=== PATIENT | male | born 1960 | race Caucasian/White ===

== ENCOUNTER → 2022-11-19 12:22 | Outpatient (CLI) | payer BC, SELFPAY ==
--- NOTE | 2022-11-19 12:28 | XR_ITS ---
FINAL REPORT CLINICAL HISTORY: achilles pain weight bearing FINDINGS: RIGHT FOOT Three views of the right foot demonstrate no acute fracture or dislocation. There are mild degenerative changes. Calcification is seen in the region of the distal Achilles tendon. There is a plantar calcaneal spur. IMPRESSION: Degenerative changes as above without acute bony abnormality. Reviewed, Interpreted and Dictated by Guero Saavedra III, MD Transcribed by Jocelyn Maria Authenticated and [facility]
--- NOTE | 2022-11-19 12:28 | XR_ITS ---
FINAL REPORT CLINICAL HISTORY: achilles pain weight bearing FINDINGS: LEFT FOOT Three views of the left foot demonstrate no acute fracture or dislocation. There are mild degenerative changes. Calcification is seen in the region of the distal Achilles tendon. There is a plantar calcaneal spur. IMPRESSION: Degenerative changes as above without acute bony abnormality. Reviewed, Interpreted and Dictated by Guero Saavedra III, MD Transcribed by Jocelyn Maria Authenticated and [facility]
== END ==
PROVIDERS: PCP Nurse Practitioner Family; Visit Provider Podiatrist
DX: M76.61 Achilles tendinitis, right leg (principal)
CPT/HCPCS: 73630

== ENCOUNTER → 2022-12-17 09:47 | Outpatient (CLI) | payer BC, SELFPAY ==
--- NOTE | 2022-12-17 09:48 | MR_ITS ---
FINAL REPORT CLINICAL HISTORY: achilles spur. posterior ankle pain. symptoms xyears. FINDINGS: Multiplanar MR imaging of the right ankle was performed without contrast. There is bone marrow edema in the superior calcaneal tuberosity. No fracture is identified. There are mild degenerative changes. A small osteochondral lesion is seen at the lateral talar dome measuring 3 mm in transverse dimension. There is a tear of the anterior talofibular ligament and probable partial tear of the calcaneofibular ligament. There is distal Achilles tendinitis, peritendinitis and small intrasubstance tears. A chronic calcification is seen in the distal Achilles tendon. Fluid is seen at the retrocalcaneal bursa consistent with bursitis. The posterior plantar aponeurosis is intact. No significant joint effusion is seen. The musculature is intact. There is no evidence of soft tissue mass or cyst. IMPRESSION: Tear of the anterior talofibular ligament and probable partial tear of the calcaneofibular ligament. Distal Achilles tendinitis, peritonitis and small intrasubstance tears. Retrocalcaneal bursitis. 3 mm osteochondral lesion at the lateral talar dome and bone marrow edema in the superior calcaneal tuberosity. Reviewed, Interpreted and Dictated by Guero Saavedra III, MD Transcribed by Jocelyn Maria Authenticated and [facility]
--- NOTE | 2022-12-17 12:01 | XR_ITS ---
FINAL REPORT CLINICAL HISTORY: Chest and epigastric pain COMPARISON: 10/30/2022 FINDINGS: 2 views of the chest were obtained . The heart is normal in size. The mediastinum is within normal limits. The lungs are clear. There is no pneumothorax. Osseous structures are unremarkable. IMPRESSION: No acute cardiopulmonary process. Reviewed, Interpreted and Dictated by Guero Saavedra III, MD Transcribed by Jocelyn Maria Authenticated and [facility]
--- NOTE | 2022-12-17 14:25 | ECG_ITS ---
APPROVED REPORT Exam: Resting ECG HR:87 bpm ECG Measurements Heart Rate 87 AXES ME 152 P 23 QRSd 99 QRS 6 QT 364 T 27 QTc 408 Conclusion SINUS RHYTHM NORMAL ECG UNCONFIRMED REPORT Electronically signed by : Pelon Padron MD 12/17/2022 21:13:10
[2022-12-17 14:59] LABS: Basophils % 0.9 % (0.1-2.0); Eosinophils # 0.2 K/mm3 (0.0-0.4); Eosinophils % 5.2 % (0.1-12.0); Hematocrit 45.8 % (42.0-52.0); Hemoglobin 15.4 g/dL (14.1-18.0); Lymphocytes # 1.1 K/mm3 (0.7-4.5); Lymphocytes % 26.2 % (10-50); Mean Corpuscular HGB Conc 33.7 g/dL (31.8-35.4); Mean Corpuscular Hemoglobin 30.5 pg (27.0-31.2); Mean Corpuscular Volume 90.4 fl (80-94); Monocytes # 0.3 K/mm3 (0.1-1.0); Monocytes % 7.7 % (1.7-9.3); Neutrophils # 2.5 K/mm3 (1.8-7.8); Neutrophils % 59.8 % (37.0-80.0); Platelet Count 199 K/mm3 (142-424); Red Blood Count 5.06 M/mm3 (4.60-6.20); Red Cell Distribution Width 14.4 % (11.5-17.5); White Blood Count 4.2 K/mm3 (4.8-10.8)
[2022-12-17 16:09] LABS: Alanine Aminotransferase 59 U/L (12-78); Albumin Level 4.4 g/dl (3.5-5.0); Albumin/Globulin Ratio 1.6 (1.1-1.8); Alkaline Phosphatase 77 U/L (38-126); Anion Gap 17.7 mEq/L (5-15); Aspartate Amino Transferase 55 U/L (17-59); Bilirubin,Total 1.7 mg/dl (0.2-1.3); Blood Urea Nitrogen 24 mg/dl (9-20); Calcium 8.9 mg/dl (8.4-10.2); Carbon Dioxide 29 mmol/L (22.0-30.0); Chloride 95 mmol/L (98-107); Estimated Glomerular Filt Rate 86 ml/min (>60); GFR (African American) 104 ML/MIN (>60); Globulin 2.7 g/dL (1.3-3.2); Glucose 144 mg/dl (74-100); Potassium 3.7 mmoL/L (3.5-5.1); Sodium 138 mmol/L (136-145); Total Protein,Serum 7.1 g/dl (6.3-8.2)
[2022-12-17 16:26] LABS: 25-OH Vitamin D, Total 32.6 ng/mL (30-100)
== END ==
PROVIDERS: PCP Nurse Practitioner Family; Visit Provider Podiatrist
DX: R09.89 Other specified symptoms and signs involving the circulatory and respiratory systems (principal); M19.071 Primary osteoarthritis, right ankle and foot; M19.072 Primary osteoarthritis, left ankle and foot; G62.9 Polyneuropathy, unspecified; M76.61 Achilles tendinitis, right leg; E66.9 Obesity, unspecified; Z68.32 Body mass index [BMI] 32.0-32.9, adult
CPT/HCPCS: 36415; 71046; 73721; 80053; 82306; 83036; 85025; 93005

== ENCOUNTER 2023-01-30 09:32 | Day surgery (SDC) | payer BC, SELFPAY ==
[2023-01-30] VITALS (9 sets, daily range): BP systolic 127–177; BP diastolic 69–91; PULSE 72–87; RESP 12–18; TEMP 36.1–36.6; O2SAT 93–99; BMI 32.5
--- NOTE | 2023-01-30 09:28 | SUR.PREOP ---
TC to Dr. Vanessa to see if MD wants labs, CXR, or EKG redone since over 30 days old. said is okay to not redo any labs, CXR, or EKG.
[2023-01-30 10:06] LABS: POC Glucose,Bedside 124 (70-110)
--- NOTE | 2023-01-30 10:59 | XR_ITS ---
FINAL REPORT CLINICAL HISTORY: Post op achilles, retrocalc exostectomy COMPARISON: 11/19/2022 FINDINGS: RIGHT ANKLE SERIES Three views of the right ankle were obtained. There is no acute fracture or dislocation. There are mild degenerative changes. There has been interval removal of the calcification of the distal Achilles tendon. There is no soft tissue abnormality. There is a splint present. IMPRESSION: Mild degenerative changes. Interval removal of the calcification of the distal Achilles tendon. Reviewed, Interpreted and Dictated by Guero Saavedra III, MD Transcribed by Milad Orozco Authenticated and [facility]
--- NOTE | 2023-01-30 12:00 | P.PN_ITS ---
[facility] Disclaimer: The information contained in this section may have been updated after the patient was seen, as this information can be updated by other users. Medical History Achilles tendon pain Surgical History History of foot surgery History of hand surgery History of knee surgery History of shoulder surgery Hx of eye surgery Family History Other Cancer Diabetes Hypertension Social History (Updated 01/30/23 @ 09:44 by Jennifer Lewis RN) Smoking Status: Never smoker alcohol intake: never substance use type: denies use current occupational status: employed Travel in the last 8 weeks: None household members: spouse housing: house marital status: [facility] Anesthesia Checklist Patient Identification Patient Identification: Verbal (Name & ) Structural Data Admitted From: Home Planned Operative Procedure/s: r ankle stabilization Consent for Planned Operative Procedure(s) Verified: Yes NPO Status Verified Time NPO: 00:00 Additional verifications Anesthesia Reactions: No Hx Blood Transfusions: No Blood Transfusion Reaction: No Airway Assessment C-Spine Mobility Assessed: Yes TMJ Mobility Assessed: Yes Dentition: Good Dentition Neurological Assessment Level of Consciousness: Awake, Alert and Appropriate Anesthesia Plan Anesthesia Risk discussed: Yes Anesthesia Plan: Verified ASA Class: III Anesthesia Type: General w/block Preoperative Comments Pre-Operative Comments: pop block exp to pt incl risks, pt agrees to proceed
--- NOTE | 2023-01-30 13:50 | P.PNANES_ITS ---
[facility] Anesthesia Record Part I Anesthesia Record I Intake, IV Amount: 1,800 Estimated blood loss (mL): 0 Urine output (mL): 0 Blood Pressure: 150/91 SaO2: 93 Pulse Rate: 84 Respiratory Rate: 12 Temperature: 97.5 F Patient is:: Awake and Stable Stable to PACU at:: 13:50
--- NOTE | 2023-01-30 14:16 | EXP.OP.NOTE ---
Date of procedure: 01/30/23 Pre-op Diagnosis:: Right ankle instability Right Achilles tendon tear Right Achilles tendinitis Right retrocalcaneal exostosis Post-op Diagnosis:: Same + fibula loose body Procedure performed:: Right achilles repair with graft Modified Brostrum w/ secondary ATFL/CFL repair Right fibula partial excision bone Retrocalcaneal exostectomy Right tenoynovectomy peroneal tendon Surgeon:: Arely Vanessa DPM CURING BIN OPERATOR:: Arpit Rodriguez Anesthesia: GETA and regional (right pop nerve block) Estimated blood loss (mL): 20 Clinical Note:: Patient is a 62-year-old newly diagnosed diabetic male who was referred for surgical evaluation from Dr. Carcamo.? ABIs reviewed and were within normal limits, adequate healing potential. The patient has tried immobilization, modification of shoe gear, strapping, inserts, ice, elevation, and NSAIDs. He has also tried ankle bracing, K tape and home physical therapy. After a long discussion with the patient in regards to the conservative versus surgical treatment for the tendon tear/deformity, the patient has elected to proceed with surgery because they have failed conservative treatment and continue to have pain and worsening symptoms affecting daily activities.? Surgery discussed including retro-calcaneal exostectomy with Achilles debridement and repair, ankle stabilization and possible posterior tibial and peroneal tendon debridement/repair.? The patient has been instructed on the planned procedure, all risk versus benefits of the procedure discussed.? These include but are not limited to: bleeding, infection, nerve and blood vessel damage, worsening neuropathy, need for further surgery, delay in healing of soft tissue or bone, tendon re-rupture, failure of bones to heal, non-union, mal-union, failure of the implant, prolonged pain and recovery, prolonged/permanent pain or swelling, CRPS/RSD, DVT/PE and anesthetic complications. No guarantees were given. All questions fully answered.? Written consent obtained.? Patient was fitted/dispensed crutches in office today. Operative findings:: Right ankle instability noted with a positive anterior ankle drawer preoperatively. ATFL and CFL both torn and attenuated. Synovitis noted in the lateral ankle. Fibula loose body noted from the lateral malleolus, removed. Peroneal tenosynovitis appreciated with no tara tear. Retrocalcaneal exostosis noted with hypertrophy of the Achilles tendon distally at the insertion on the calcaneus. About 2 cm proximal to the insertion, Achilles tendon had a partial tear noted. Post modified Brostr?m, negative anterior drawer appreciated. Post achilles repair adequate tension and reduction of equinus deformity appreciated. Operative note:: On this date and time patient was deemed an appropriate surgical candidate. Anesthesia performed a pre-op regional popliteal nerve block. With informed consent signed, the patient was taken to the operating theater. The patient was positioned supine. General anesthesia was induced. Tourniquet was applied to the thigh at 250 mmHg. Patient positioned prone and the right lower extremity was prepped and draped in normal sterile fashion. IV clinda infused. Right fibula partial excision bone: Attention was directed to the lateral ankle where a J type incision was made under the distal fibula. Full-thickness dissection. ATFL and CFL were noted to both be torn and attenuated. There is a loose body in the lateral ankle which was removed in total. Modified Brostrum w/ secondary ATFL/CFL repair: Synovitis was sharply debrided with 15 blade and forceps. Given the attenuated nonviable ligament tissue, decision made to proceed with internal brace. In standard technique in accordance manufacture guidelines, 3.4 mm drill used in the neck of the talus. Internal brace inserted into the talus. Foot was placed in a dorsiflexed everted position and anchor was then inserted in standard technique into the distal fibula. There is im
[2023-01-30 14:23] LABS: POC Glucose,Bedside 168 (70-110)
--- NOTE | 2023-01-30 15:25 | SUR.OPER ---
1154- called to [facility] and spoke with OSVALDO Alba asking that she update the patient's family of the start of surgery per 's request. 1222- called to [facility] and spoke with OSVALDO Alba asking that she update the patient's family that we are beginning to close per 's request.
--- NOTE | 2023-02-04 08:17 | P.PNANES_ITS ---
[facility] Anesthesia Record Part II Anesthesia Record Part II Discharge Time: 14:20 Destination: Surgical Day Care (OP Surgery) PACU nurse assessment reviewed?: Yes Patient Condition:: Good Anesthesia Complications:: None Swallowing reflex intact?: Yes Cyanosis?: No Blood Pressure: 142/87 Pulse Rate: 72 Temperature: 97.2 F Mental Status: Alert & Oriented Pain level:: 0 Nausea and/or vomitting:: None Intake, IV Amount: 0
[2023-02-04 08:19] VITALS: BP 142/87; PULSE 72; TEMP 36.2
== END 2023-01-30 15:01 | disposition home or self-care (01) ==
PROVIDERS: PCP Nurse Practitioner Family; Visit Provider Podiatrist
PROC: (CPT 27652; principal; 2023-01-30 11:00)
DX: M25.371 Other instability, right ankle (principal); M76.61 Achilles tendinitis, right leg; D16.31 Benign neoplasm of short bones of right lower limb; M25.571 Pain in right ankle and joints of right foot; M92.61 Juvenile osteochondrosis of tarsus, right ankle; M67.88 Other specified disorders of synovium and tendon, other site; M19.071 Primary osteoarthritis, right ankle and foot; E11.9 Type 2 diabetes mellitus without complications; I10 Essential (primary) hypertension; Z79.899 Other long term (current) drug therapy
CPT/HCPCS: 27652; 29891; 29897; 29895; 27659; 73610; 82962; 96374; C1713; C1762; J0330; J2405; J2710

== ENCOUNTER 2023-02-27 19:05 | Observation (INO) | payer BC, SELFPAY ==
[2023-02-27 19:07] VITALS: BP 169/90; PULSE 83; RESP 18; TEMP 36.6; O2SAT 98; BMI 31.6
[2023-02-27 19:30] VITALS: BP 155/87; PULSE 81; O2SAT 96
--- NOTE | 2023-02-27 19:46 | XR_ITS ---
PROCEDURE INFORMATION: Exam: XR Right Foot Exam date and time: 02/27/2023 7:54 PM Age: 62 years old Clinical indication: Injury or trauma; Fall; Blunt trauma; Foot; Right; Prior surgery; Surgery date: <1 month; Surgery type: Achilles tendon repair x4 weeks; Additional info: Fall, right surgical site opened TECHNIQUE: Imaging protocol: Radiologic exam of the right foot. Views: 1 or 2 views. COMPARISON: CR XR FOOT WT BEARING RT 3V 11/19/2022 12:29 PM FINDINGS: Bones/joints: Interval surgery with resection of the large Achilles tendon insertion ossification. Thickened appearance of the Achilles tendon. Tiny bony or calcific densities noted within the distal Achilles tendon just above the calcaneus may be residual of the prior surgery. Interval development of soft tissue air just anterior to the Achilles tendon. No fracture or dislocation evident. Soft tissues: See Bones/joints finding. IMPRESSION: 1. Interval surgery with resection of the posterior calcaneal ossification. Thickened appearance of the Achilles tendon that may be related to the interval surgery but can not exclude re-injury given history of trauma. 2. Small amounts of air anterior to the Achilles tendon presumably related to the surgical site dehiscence although infection not totally excluded.
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
--- NOTE | 2023-02-27 20:02 | XR_ITS ---
PROCEDURE INFORMATION: Exam: XR Right Ankle Exam date and time: 02/27/2023 7:54 PM Age: 62 years old Clinical indication: Pain; Ankle; Right; Prior surgery; Surgery date: <1 month; Surgery type: Achilles tendon repair x4 weeks; Additional info: Pain after surgical site dehiscence TECHNIQUE: Imaging protocol: Radiologic exam of the right ankle. Views: 1 or 2 views. COMPARISON: CR XR ANKLE RT MIN 3V 01/30/2023 2:11 PM FINDINGS: Bones/joints: Thickened appearance of the Achilles tendon compatible with history of recent surgery noted. Soft tissue air is noted within the pre Achilles space just anterior to the Achilles tendon. Tiny soft tissue calcific densities also noted just anterior to the Achilles tendon presumably residual of prior injury or surgery. Soft tissues: See Bones/joints finding. IMPRESSION: 1. Thickened Achilles tendon compatible with prior surgery or injury. 2. Small amounts of soft tissue air just anterior to the Achilles tendon which may be related to the reported history of surgical site dehiscence but I can not exclude developing soft tissue infection or possible abscess.
[2023-02-27 20:22] LABS: Basophils % 0.8 % (0.1-2.0); Eosinophils # 0.3 K/mm3 (0.0-0.4); Eosinophils % 6.2 % (0.1-12.0); Hematocrit 45.2 % (42.0-52.0); Lymphocytes % 21.9 % (10-50); Mean Corpuscular HGB Conc 33.2 g/dL (31.8-35.4); Mean Corpuscular Hemoglobin 30.2 pg (27.0-31.2); Mean Corpuscular Volume 91.1 fl (80-94); Mean Platelet Volume 7.5 fl (7.4-10.4); Monocytes # 0.5 K/mm3 (0.1-1.0); Neutrophils # 2.9 K/mm3 (1.8-7.8); Platelet Count 203 K/mm3 (142-424); Red Blood Count 4.96 M/mm3 (4.60-6.20); Red Cell Distribution Width 14.2 % (11.5-17.5); White Blood Count 4.7 K/mm3 (4.8-10.8)
[2023-02-27 20:23] LABS: Chloride 101 mmol/L (98-107); Potassium 3.7 mmoL/L (3.5-5.1); Sodium 140 mmol/L (136-145)
[2023-02-27 20:26] LABS: Anion Gap 10.7 mEq/L (5-15); Blood Urea Nitrogen 22 mg/dl (9-20); Calcium 9.5 mg/dl (8.4-10.2); Carbon Dioxide 32 mmol/L (22.0-30.0); Creatinine Clearance Estimated 93 mL/min (50-200); Estimated Glomerular Filt Rate 56 ml/min (>60); GFR (African American) 68 ML/MIN (>60); Glucose 120 mg/dl (74-100)
--- NOTE | 2023-02-27 20:28 | PC.NURSE ---
Pt is still complaining of pain at this time despite pain meds. aware.
[2023-02-27 20:31] LABS: C-Reactive Protein 2.2 mg/L (0-4)
--- NOTE | 2023-02-27 20:43 | PC.NURSE ---
House aware of Admit
--- NOTE | 2023-02-27 20:49 | PC.NURSE ---
PATIENT ADMITTED TO 214 OBSERVATION WITH DX OF PAIN CONTROL TO SERVICE OF HOSPITALIST.
[2023-02-27 20:55] VITALS: BP 156/88; PULSE 75; O2SAT 98
[2023-02-27 20:57] VITALS: BP 151/74; PULSE 72; RESP 16; TEMP 36.6; O2SAT 98
--- NOTE | 2023-02-27 20:58 | PC.NURSE ---
pt is going to [facility] via stretcher, call light at bs
--- NOTE | 2023-02-27 20:58 | PC.NURSE ---
pt leaving dept via stretcher with Chris Morgan RN
[2023-02-27 21:00] VITALS: BP 151/85; PULSE 73; RESP 18; TEMP 36.8; O2SAT 98; BMI 32.7
[2023-02-27 21:00] LABS: Erythrocyte Sedimentation Rate 15 mm/hr (0-20)
--- NOTE | 2023-02-27 21:04 | PC.NURSE ---
Pt arrived to floor via stretcher @ 2100
[2023-02-27 21:15] LABS: Hemoglobin A1C 5.7 % (4.0-6.0)
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
[2023-02-27 21:48] VITALS: RESP 19
[2023-02-28] VITALS (22 sets, daily range): BP systolic 121–164; BP diastolic 64–106; PULSE 74–99; RESP 12–18; TEMP 36.4–37.1; O2SAT 91–99; BMI 32.7
[2023-02-28 06:06] LABS: POC Glucose,Bedside 102 (70-110)
[2023-02-28 06:11] LABS: Anion Gap 8.4 mEq/L (5-15); Blood Urea Nitrogen 20 mg/dl (9-20); Calcium 8.4 mg/dl (8.4-10.2); Carbon Dioxide 33 mmol/L (22.0-30.0); Chloride 105 mmol/L (98-107); Creatinine Clearance Estimated 113 mL/min (50-200); Estimated Glomerular Filt Rate 68 ml/min (>60); GFR (African American) 83 ML/MIN (>60); Glucose 107 mg/dl (74-100); Potassium 3.4 mmoL/L (3.5-5.1); Sodium 143 mmol/L (136-145)
[2023-02-28 06:24] LABS: Basophils % 1.1 % (0.1-2.0); Eosinophils # 0.2 K/mm3 (0.0-0.4); Eosinophils % 6.5 % (0.1-12.0); Hematocrit 42.7 % (42.0-52.0); Hemoglobin 14.2 g/dL (14.1-18.0); Lymphocytes # 1.2 K/mm3 (0.7-4.5); Mean Corpuscular HGB Conc 33.2 g/dL (31.8-35.4); Mean Corpuscular Hemoglobin 29.9 pg (27.0-31.2); Mean Platelet Volume 7.6 fl (7.4-10.4); Monocytes # 0.4 K/mm3 (0.1-1.0); Monocytes % 9.9 % (1.7-9.3); Neutrophils # 1.7 K/mm3 (1.8-7.8); Neutrophils % 47.5 % (37.0-80.0); Platelet Count 169 K/mm3 (142-424); Red Blood Count 4.75 M/mm3 (4.60-6.20); Red Cell Distribution Width 14.1 % (11.5-17.5); White Blood Count 3.5 K/mm3 (4.8-10.8)
--- NOTE | 2023-02-28 07:58 | P.CONPHA_ITS ---
Pharmacy Consult Date: 02/28/23 Time: 07:58 Referring provider: REBECCA Reason for Consult:: PHARMACY CONSULTED TO MANAGE VANCOMYCIN Allergies Allergy/AdvReac Type Severity Reaction Status Date / Time Penicillins Allergy Unknown Verified 02/21/23 10:33 Home Medications Medication Instructions Recorded Confirmed Type amitriptyline 50 mg tablet 50 mg PO DAILY . 11/19/22 02/28/23 History amlodipine 5 mg tablet 5 mg PO DAILY High blood pressure 11/19/22 02/28/23 History losartan 100 1 tab PO DAILY High blood pressure 11/19/22 02/28/23 History mg-hydrochlorothiazide 25 mg tablet meloxicam 15 mg tablet 15 mg PO NEEDED PRN Pain 11/19/22 02/28/23 History metformin 500 mg tablet,extended 500 tab PO DAILY Diabetes 11/19/22 02/28/23 History release 24 hr ibuprofen 800 mg tablet 800 mg PO BID pain, mild #60 tabs 01/28/23 02/28/23 Rx ondansetron 4 mg disintegrating 4 mg PO Q6H nausea and vomiting 01/28/23 02/28/23 Rx tablet #30 tabs cholecalciferol (vitamin D3) 1,250 1,250 mcg PO WEEKLY Supplement 01/30/23 02/28/23 History mcg (50,000 unit) capsule gabapentin 300 mg capsule 300 mg PO TID Pain 01/30/23 02/28/23 History New Prescriptions to Start Prescriptions: Height: 1.85 m Weight: 112.037 kg Laboratory Results:: Laboratory Results - last 24 hr 02/27/23 19:40: WBC 4.7 L, RBC 4.96, Hgb 15.0, Hct 45.2, MCV 91.1, MCH 30.2, MCHC 33.2, RDW 14.2, Plt Count 203, MPV 7.5, Neut % (Auto) 61.0, Lymph % (Auto) 21.9, [place] % (Auto) 10.0 H, Eos % (Auto) 6.2, Baso % (Auto) 0.8, Neut # (Auto) 2.9, Lymph # (Auto) 1.0, [place] # (Auto) 0.5, Eos # (Auto) 0.3, Baso # (Auto) 0.0, ESR 15, Sodium 140, Potassium 3.7, Chloride 101, Carbon Dioxide 32 H, Anion Gap 10.7, BUN 22 H, Creatinine 1.30 H, Estimated Creat Clear 93, Estimated GFR 56 L, Est GFR ( Amer) 68, Glucose 120 H, Hemoglobin A1c 5.7, Lactate 1.0, Calcium 9.5, C-Reactive Protein 2.2 02/28/23 05:23: WBC 3.5 L D, RBC 4.75, Hgb 14.2, Hct 42.7, MCV 90.0, MCH 29.9, MCHC 33.2, RDW 14.1, Plt Count 169, MPV 7.6, Neut % (Auto) 47.5, Lymph % (Auto) 35.0, [place] % (Auto) 9.9 H, Eos % (Auto) 6.5, Baso % (Auto) 1.1, Neut # (Auto) 1.7 L, Lymph # (Auto) 1.2, [place] # (Auto) 0.4, Eos # (Auto) 0.2, Baso # (Auto) 0.0, Sodium 143, Potassium 3.4 L, Chloride 105, Carbon Dioxide 33 H, Anion Gap 8.4, BUN 20, Creatinine 1.10, Estimated Creat Clear 113, Estimated GFR 68, Est GFR ( Amer) 83 D, Glucose 107 H, Calcium 8.4 02/28/23 05:51: POC Glucose 102 Medical History: Medical History (Updated 02/27/23 @ 23:07 by Warner Giordano MD) Achilles tendon pain Assessment and Plan Assessment and plan all Dx Assessment and Plan for all problems:: FROM H&P: ED ankle and foot xray revealed surgical site dehiscence, developing soft tissue infection, and possible re-injury. The ED physician spoke with the hospitlist team for admission. The patient will be admitted to the medical floor for further care. He will receive IV antibiotics and a podiatry consult. PT RECEIVED CEFEPIME 1GM Q12H AND VANCOMYCIN 2000MG IN ER. WILL CONTINUE VANCOMYCIN 2000MG (18MG/KG) Q12H. WILL FOLLOW DAILY DURING VANCOMYCIN THERAPY AND ADJUST NECCESSARY
--- NOTE | 2023-02-28 07:59 | EXP.POD.CONS ---
History of Present Illness *Admission Date: 02/27/23 *Reason for visit:: Right achilles wound dehiscence *History of present illness: 62 year old male presented to the ED tonight after falling and re injuring his right ankle. PMHX s/p right achilles repair with graft, DM, HTN, HLD and sleep apnea. Patient states that he flipped over a scooter and hyperextended his ankle upward and felt immediate pop and pain. ED ankle and foot xray revealed surgical site dehiscence, developing soft tissue infection, and possible re-injury. The ED physician spoke with the hospitlist team for admission. The patient will be admitted to the medical floor for further care. He will receive IV antibiotics and a podiatry consult. Podiatry consult: Patient reports was at home with boot off. Got up quick, forgot he was not wearing the boot, stepped down and had pain and then tripped forward over his knee scooter. [place] a tearing sensation along the back of the incision with immediate bleeding. He came to the ER for blood flow control. He denied a pop sound/sensation. Reports pain is some what better today. [facility] Disclaimer: The information contained in this section may have been updated after the patient was seen, as this information can be updated by other users. Medical History Achilles tendon pain Surgical History History of foot surgery History of hand surgery History of knee surgery History of shoulder surgery Hx of eye surgery Family History Other Cancer Diabetes Hypertension Social History (Updated 02/27/23 @ 21:32 by Vicente Morgan RN) Smoking Status: Never smoker alcohol intake: never substance use type: denies use current occupational status: employed Travel in the last 8 weeks: None household members: spouse housing: house marital status: Review of Systems Review of Systems Review of systems:: pertinent systems reviewed and negative unless documented below Constitutional Constitutional: Reports system reviewed and no additional complaints, except as documented Eyes Eyes: Reports system reviewed and no additional complaints, except as documented ENT Ears, Nose, Mouth, and Throat: Reports system reviewed and no additional complaints, except as documented *Cardiovascular Cardiovascular: Reports system reviewed and no additional complaints, except as documented *Respiratory Respiratory: Reports system reviewed and no additional complaints, except as documented *Gastrointestinal Gastrointestinal: Reports system reviewed and no additional complaints, except as documented *Genitourinary Genitourinary: Reports system reviewed and no additional complaints, except as documented *Musculoskeletal Musculoskeletal: Reports joint swelling and Reports limited range of motion Comments: right ankle Integumentary/Breasts Skin/Breast: Reports system reviewed and no additional complaints, except as documented *Neurologic Neurologic: Reports system reviewed and no additional complaints, except as documented Psychiatric Psychiatric: Reports system reviewed and no additional complaints, except as documented Endocrine Endocrine: Reports system reviewed and no additional complaints, except as documented Hematologic/Lymphatic Hematologic/Lymphatic: Reports system reviewed and no additional complaints, except as documented Allergic/Immunologic Allergic/Immunologic: Reports system reviewed and no additional complaints, except as documented Meds Home Medications and Allergies Home Medications Medication Instructions Recorded Confirmed Type amitriptyline 50 mg tablet 50 mg PO DAILY . 11/19/22 02/28/23 History amlodipine 5 mg tablet 5 mg PO DAILY High blood pressure 11/19/22 02/28/23 History losartan 100 1 tab PO DAILY High blood pressure 11/19/22 02/28/23 History mg-
--- NOTE | 2023-02-28 08:11 | US_ITS ---
FINAL REPORT TECHNIQUE: Ultrasound imaging of the right foot was obtained. CLINICAL HISTORY: Achilles tear-- post repair x 4 wks ago-- pt fell last pm tore incision open -- dr mireles at bedside to look at scan FINDINGS: There is no evidence of complete tear of the Achilles tendon. If there is concern for partial tear, MRI would be helpful for further evaluation. No surrounding hematoma or significant fluid collection. IMPRESSION: No evidence of complete Achilles tendon tear. If concern for partial tear, consider MRI. Reviewed, Interpreted and Dictated by Hemalatha Field MD Transcribed by Jocelyn Maria Authenticated and [facility]
--- NOTE | 2023-02-28 09:00 | P.CONPHA_ITS ---
Pharmacy Intervention Comments: Patient's home medications reviewed and verified with patient and external pharmacy. -Alfrdeo Garcia, Pharm Student
--- NOTE | 2023-02-28 09:00 | HMH.PHAINT1 ---
Pharmacy Intervention Comments: Patient's home medications reviewed and verified with patient and external pharmacy. -Alfredo Garcia, Pharm Student
[2023-02-28 10:13] LABS: POC Glucose,Bedside 116 (70-110)
--- NOTE | 2023-02-28 12:13 | PC.NURSE ---
Pt. off floor for surgery.
--- NOTE | 2023-02-28 14:16 | SUR.OPER ---
1410- family updated of pt current status via mera mccormack.
--- NOTE | 2023-02-28 14:34 | EXP.ANES.CKL ---
[facility] Disclaimer: The information contained in this section may have been updated after the patient was seen, as this information can be updated by other users. Medical History Achilles tendon pain Surgical History History of foot surgery History of hand surgery History of knee surgery History of shoulder surgery Hx of eye surgery Family History Other Cancer Diabetes Hypertension Social History (Updated 02/27/23 @ 21:32 by Vicente Morgan RN) Smoking Status: Never smoker alcohol intake: never substance use type: denies use current occupational status: employed Travel in the last 8 weeks: None household members: spouse housing: house marital status: [facility] Anesthesia Checklist Patient Identification Patient Identification: Verbal (Name & ) Structural Data Admitted From: Inpatient Planned Operative Procedure/s: i/d achilles tendon repair Consent for Planned Operative Procedure(s) Verified: Yes NPO Status Verified Time NPO: 00:00 Additional verifications Anesthesia Reactions: No Hx Blood Transfusions: No Blood Transfusion Reaction: No Airway Assessment C-Spine Mobility Assessed: Yes TMJ Mobility Assessed: Yes Dentition: Good Dentition Neurological Assessment Level of Consciousness: Awake, Alert and Appropriate Anesthesia Plan Anesthesia Risk discussed: Yes Anesthesia Plan: Verified ASA Class: II Anesthesia Type: General w/block
--- NOTE | 2023-02-28 15:04 | EXP.ANES.I ---
[facility] Anesthesia Record Part I Anesthesia Record I Intake, IV Amount: 1,500 Estimated blood loss (mL): 0 Urine output (mL): 0 Blood Pressure: 148/96 SaO2: 95 Pulse Rate: 91 Respiratory Rate: 12 Temperature: 97.5 F Patient is:: Awake and Stable Stable to PACU at:: 15:00
--- NOTE | 2023-02-28 15:11 | EXP.OP.NOTE ---
Date of procedure: 02/28/23 Pre-op Diagnosis:: Right surgical wound dehsicence Right achilles partial tear/rupture Post-op Diagnosis:: Same Procedure performed:: Right achilles open primary repair Right wound debridement Right delayed primary closure Right graft application Surgeon:: Arely Vanessa DPM ABATTOIR SUPERVISOR:: Arpit Rodriguez Anesthesia: GETA and regional (R pop block) Estimated blood loss (mL): 10 Clinical Note:: Patient is a 62-year-old diabetic male who was admitted last night after a fall with tear of achilles and tearing of incision site. Infection markers negative. Ultrasound positive for achilles tear. MRI unable to be obtained due to having recent surgery and presence of bone anchors in the calcaneus. After a long discussion with the patient in regards to the conservative versus surgical treatment for the tendon tear/deformity, the patient has elected to proceed with surgery because of open wound and risk for post op infection due to exposed achilles. Surgery discussed including Achilles debridement and repair, wound debridement with closure.? The patient has been instructed on the planned procedure, all risk versus benefits of the procedure discussed.? These include but are not limited to: bleeding, infection, nerve and blood vessel damage, worsening neuropathy, need for further surgery, delay in healing of soft tissue or bone, tendon re-rupture, failure of bones to heal, non-union, mal-union, failure of the implant, prolonged pain and recovery, prolonged/permanent pain or swelling, CRPS/RSD, DVT/PE and anesthetic complications. No guarantees were given. All questions fully answered.? Written consent obtained.? Operative findings:: Preoperatively there was a negative Radford test however plantarflexion was slightly weaker compared to the left lower extremity. Prior Achilles incision noted with a 2.5 x 0.3 x 0.3 cm opening at the proximal aspect of the incision site. Opening was full-thickness wound through skin subcu down to level of the deep fascia/Achilles tendon. No purulence malodor or drainage noted. Full-thickness incision was made opening up the previous incision site both proximally and distally. No deep signs of infection noted. Achilles tendon was torn at the level of the open wound. There was a split longitudinal tear about 2 cm long. There was also a transverse partial Achilles tear/rupture about 2 and half centimeters proximal to the calcaneal insertion. Bone anchors and distal insertion intact to the heel. Post repair negative Radford test noted, good tension on the Achilles repair site. Prognosis fair. Risk factors include revisional surgery, potential skin/wound healing complications including wound dehiscence and infection secondary to open wound injury that occurred outside initially contaminated with grass and diabetes. Operative note:: On this date and time patient was deemed an appropriate surgical candidate. Anesthesia performed a pre-op regional popliteal nerve block. With informed consent signed, the patient was taken to the operating theater. The patient was positioned supine. General anesthesia was induced. Tourniquet was applied to the thigh at 250 mmHg. Patient positioned prone and the right lower extremity was prepped and draped in normal sterile fashion. IV Vanco, Cefepime given on floor. Right wound debridement: Attention was directed to the posterior heel where open wound was noted. 15 blade used to make full-thickness incision proximal and distal to the open wound full-thickness through skin subcu into the level of the deep fascia. Wound was sharply excisionally debrided with 15 blade and forceps. Nonviable skin edges were resected to the level of good healthy bleeding bone. Wound was flushed with gentamicin irrigation. Right Achilles debridement and repair: Attention was directed to the achilles tendon, where hematoma was noted at the partial rupture site. Hematoma was evacuated. Wound flushed with gentami
[2023-02-28 15:19] LABS: POC Glucose,Bedside 127 (70-110)
--- NOTE | 2023-02-28 15:49 | PC.NURSE ---
Pt. back to floor and RLE is pink and warm.
--- NOTE | 2023-02-28 18:08 | EXP.ACUTE.PN ---
Subjective *Date: 02/28/23 *Time: 18:08 Interval history: Patient's pain stable this morning. Podiatry is already seeing him, going for surgery today to close wound and evaluate Achilles tendon. N.p.o. at this time. Denies any chest pain or shortness of breath. Stable on room air Medical Exam Vital signs and Labs for Last 24 Hours: Vital Signs Temp Pulse Pulse Resp BP BP Pulse Ox 02/28/23 15:30 98.8 F 90 16 150/89 H 94 L 02/28/23 15:20 92 H 16 154/77 H 94 L 02/28/23 15:10 92 H 16 164/94 H 95 02/28/23 15:16 16 02/28/23 15:00 97.5 F L 99 H 14 146/98 H 92 L 02/28/23 12:00 97.9 F 76 18 147/99 H 97 02/28/23 11:46 02/28/23 09:46 02/28/23 08:00 98 02/28/23 09:00 02/28/23 08:00 97.7 F 74 18 144/84 H 99 02/28/23 07:00 02/28/23 05:00 02/28/23 03:00 02/28/23 04:00 97.9 F 77 18 136/87 97 02/28/23 01:00 02/27/23 23:00 02/27/23 21:48 19 02/27/23 21:00 02/27/23 21:00 98.3 F 73 18 151/85 H 98 02/27/23 20:55 75 156/88 H 98 02/27/23 20:57 97.8 F 72 16 151/74 H 02/27/23 19:30 81 155/87 H 96 02/27/23 19:07 97.8 F 83 18 169/90 H 98 02/28/23 15:06 97.5 F L 91 H 12 148/96 H O2 Del Method O2 Flow Rate 02/28/23 15:30 Room Air 02/28/23 15:20 Room Air 02/28/23 15:10 Room Air 02/28/23 15:16 02/28/23 15:00 Room Air 02/28/23 12:00 Room Air 02/28/23 11:46 Room Air 02/28/23 09:46 Room Air 02/28/23 08:00 Room Air 02/28/23 09:00 Room Air 97 02/28/23 08:00 Room Air 02/28/23 07:00 Room Air 02/28/23 05:00 Room Air 02/28/23 03:00 Room Air 02/28/23 04:00 Room Air 02/28/23 01:00 CPAP 02/27/23 23:00 CPAP 02/27/23 21:48 02/27/23 21:00 Room Air 02/27/23 21:00 Room Air 02/27/23 20:55 Room Air 02/27/23 20:57 02/27/23 19:30 Room Air 02/27/23 19:07 Room Air 02/28/23 15:06 Intake and Output 02/28/23 02/28/23 02/28/23 07:59 15:59 23:59 Intake Total 1800 / 2160 360 / 2160 Output Total 400 / 900 500 / 900 Balance -400 / 1260 1300 / 1260 360 / 1260 Intake: Intake, Oral Amount 360 / 360 Intake, Total IV Amount 1800 / 1800 Cefepime HCl 1 gm In 0.9 % 50 / 50 Sodium Chloride 50 ml @ 100 mls /hr IV Q12H [facility] Rx#:[id number] Vancomycin HCl 2,000 mg In 0.9 250 / 250 % Sodium Chloride 250 ml @ 125 mls/hr IV ONCE ONE Rx#:[id number] Output: Output, Urine Amount 400 / 900 500 / 900 Other: Number of Unmeasured Voids 0 Weight 112.037 kg 112.037 kg Patient Weight 02/28/23 23:59 Weight 112.037 kg Laboratory Results - last 24 hr 02/27/23 19:40: WBC 4.7 L, RBC 4.96, Hgb 15.0, Hct 45.2, MCV 91.1, MCH 30.2, MCHC 33.2, RDW 14.2, Plt Count 203, MPV 7.5, Neut % (Auto) 61.0, Lymph % (Auto) 21.9, [place] % (Auto) 10.0 H, Eos % (Auto) 6.2, Baso % (Auto) 0.8, Neut # (Auto) 2.9, Lymph # (Auto) 1.0, [place] # (Auto) 0.5, Eos # (Auto) 0.3, Baso # (Auto) 0.0, ESR 15, Sodium 140, Potassium 3.7, Chloride 101, Carbon Dioxide 32 H, Anion Gap 10.7, BUN 22 H, Creatinine 1.30 H, Estimated Creat Clear 93, Estimated GFR 56 L, Est GFR ( Amer) 68, Glucose 120 H, Hemoglobin A1c 5.7, Lactate 1.0, Calcium 9.5, C-Reactive Protein 2.2 02/28/23 05:23: WBC 3.5 L D, RBC 4.75, Hgb 14.2, Hct 42.7, MCV 90.0, MCH 29.9, MCHC 33.2, RDW 14.1, Plt Count 169, MPV 7.6, Neut % (Auto) 47.5, Lymph % (Auto) 35.0, [place] % (Auto) 9.9 H, Eos % (Auto) 6.5, Baso % (Auto) 1.1, Neut # (Auto) 1.7 L, Lymph # (Auto) 1.2, [place] # (Auto) 0.4, Eos # (Auto) 0.2, Baso # (Auto) 0.0, Sodium 143, Potassium 3.4 L, Chloride 105, Carbon Dioxide 33 H, Anion Gap 8.4, BUN 20, Creatinine 1.10, Estimated Creat Clear 113, Estimated GFR 68, Est GFR ( Amer) 83 D, Glucose 107 H, Calcium 8.4 02/28/23 05:51: POC Glucose 102 02/28/23 10:06: POC Glucose 116 H 02/28/23 15:00: POC Glucose 127 H I & O for Labs for Last 24 [place]
[2023-02-28 20:45] LABS: POC Glucose,Bedside 211 (70-110)
[2023-03-01] VITALS: BP 113/71; PULSE 92; RESP 16; TEMP 36.8; O2SAT 95
[2023-03-01 04:00] VITALS: BP 136/81; PULSE 68; RESP 16; TEMP 37; O2SAT 98; BMI 32.8
--- NOTE | 2023-03-01 05:10 | PC.NURSE ---
DENIES PAIN. DRSG-SPLINT AND KAREL WRAP C/D/I TO LEFT FOOT.. FOOT ELEVATED. REMAINS NWB TO LEFT FOOT. PATIENT HAS USED HIS OWN PRIVATE BIPAP AT .
[2023-03-01 05:46] LABS: POC Glucose,Bedside 169 (70-110)
[2023-03-01 06:28] LABS: Eosinophils % 0.2 % (0.1-12.0); Hemoglobin 14.8 g/dL (14.1-18.0); Lymphocytes # 0.7 K/mm3 (0.7-4.5); Mean Corpuscular HGB Conc 33.6 g/dL (31.8-35.4); Mean Corpuscular Hemoglobin 30.5 pg (27.0-31.2); Mean Corpuscular Volume 90.6 fl (80-94); Mean Platelet Volume 7.5 fl (7.4-10.4); Monocytes # 0.4 K/mm3 (0.1-1.0); Monocytes % 4.9 % (1.7-9.3); Neutrophils # 6.2 K/mm3 (1.8-7.8); Neutrophils % 84.9 % (37.0-80.0); Platelet Count 206 K/mm3 (142-424); Red Blood Count 4.85 M/mm3 (4.60-6.20); White Blood Count 7.3 K/mm3 (4.8-10.8)
[2023-03-01 06:34] LABS: Alanine Aminotransferase 34 U/L (12-78); Albumin Level 3.9 g/dl (3.5-5.0); Albumin/Globulin Ratio 1.4 (1.1-1.8); Alkaline Phosphatase 71 U/L (38-126); Aspartate Amino Transferase 29 U/L (17-59); Bilirubin,Total 1.2 mg/dl (0.2-1.3); Blood Urea Nitrogen 22 mg/dl (9-20); Calcium 8.6 mg/dl (8.4-10.2); Carbon Dioxide 26 mmol/L (22.0-30.0); Chloride 107 mmol/L (98-107); Creatinine Clearance Estimated 139 mL/min (50-200); Estimated Glomerular Filt Rate 86 ml/min (>60); GFR (African American) 104 ML/MIN (>60); Globulin 2.8 g/dL (1.3-3.2); Glucose 158 mg/dl (74-100); Sodium 142 mmol/L (136-145); Total Protein,Serum 6.7 g/dl (6.3-8.2)
[2023-03-01 07:37] VITALS: BP 137/75; PULSE 88; RESP 18; TEMP 36.9; O2SAT 98
--- NOTE | 2023-03-01 07:46 | EXP.DC.SUM ---
General Admission date:: 02/27/23 Discharge date: 03/01/23 HPI HPI HPI: 62 year old male presented to the ED tonight after falling and re injuring his right ankle. PMHX s/p right achilles repair with graft, DM, HTN, HLD and sleep apnea. Patient states that he flipped over a scooter and hyperextended his ankle upward and felt immediate pop and pain. ED ankle and foot xray revealed surgical site dehiscence, developing soft tissue infection, and possible re-injury. The ED physician spoke with the hospitlist team for admission. The patient will be admitted to the medical floor for further care. He will receive IV antibiotics and a podiatry consult. Podiatry consult: Patient reports was at home with boot off. Got up quick, forgot he was not wearing the boot, stepped down and had pain and then tripped forward over his knee scooter. [place] a tearing sensation along the back of the incision with immediate bleeding. He came to the ER for blood flow control. He denied a pop sound/sensation. Reports pain is some what better today. Hospital Course Hospital Course Hospital Course: 62 year old male presented to the ED tonight after falling and re injuring his right ankle. S/p right achilles repair with graft four weeks prior and stitches removed one week prior. Patient states that he flipped over a scooter and hyperextended his ankle upward and felt immediate pop and pain. Podiatry consulted, taken to the OR for revision. Found to have recurrent partial tear of Achilles and dehiscence of the wound. Wound washed out and repaired. Started on empiric antibiotics to cover for risk of infection. Stable for discharge home from podiatry's perspective. We will continue antibiotics for total of 10 days. Problems addressed as follows: DEHISCENCE OF WOUND OF SKIN S/P ACHILLES TENDON REPAIR -Podiatry was consulted. Taken back to the OR on 02/28. Repaired partial tear of tendon and closed wound after washout. Patient received nerve block, pain well controlled during admission. Treated with cefepime and vancomycin during admission. Podiatry recommends patient to be nonweightbearing for 6 weeks. Follow with PT and OT as an outpatient. Continue home gabapentin for pain control. Oral antibiotics including Levaquin and doxycycline sent by podiatry to complete 10-day course. Stable for discharge home. DM: A1c well controlled at 5.7. Continue home metformin regimen. HTN HLD -Continue home regimen including amlodipine 5 mg daily and home losartan/HCTZ combo. SLEEP APNEA: CPAP as need Stable for discharge home. Nonweightbearing on right lower extremity for at least 6 weeks. Follow-up with podiatry as scheduled. Podiatry sent antibiotics and pain medication. Exam Data for Last 24 hours Vital signs and Labs for Last 24 Hours: Temp Pulse Resp BP Pulse Ox O2 Del Method O2 Flow Rate 98.6 F 68 16 136/81 98 BiPAP 97 03/01/23 04:00 03/01/23 04:00 03/01/23 04:00 03/01/23 04:00 03/01/23 04:00 03/01/23 06:36 02/28/23 09:00 Laboratory Results - last 24 hr 02/28/23 10:06: POC Glucose 116 H 02/28/23 15:00: POC Glucose 127 H 02/28/23 20:35: POC Glucose 211 H 03/01/23 05:36: POC Glucose 169 H 03/01/23 05:56: WBC 7.3 D, RBC 4.85, Hgb 14.8, Hct 44.0, MCV 90.6, MCH 30.5, MCHC 33.6, RDW 14.0, Plt Count 206, MPV 7.5, Neut % (Auto) 84.9 H, Lymph % (Auto) 10.0, [place] % (Auto) 4.9, Eos % (Auto) 0.2, Baso % (Auto) 0.0 L, Neut # (Auto) 6.2, Lymph # (Auto) 0.7, [place] # (Auto) 0.4, Eos # (Auto) 0.0, Baso # (Auto) 0.0, Sodium 142, Potassium 4.0, Chloride 107, Carbon Dioxide 26, Anion Gap 13.0, BUN 22 H, Creatinine 0.90, Estimated Creat Clear 139, Estimated GFR 86, Est GFR ( Amer) 104 D, Glucose 158 H, Calcium 8.6, Total Bilirubin 1.2, AST 29, ALT 34, Alkaline Phosphatase 71, Total Protein 6.7, Albumin 3.9, Globulin 2.8, Albumin/Globulin Ratio 1.4 I & O for Last 24 hours: Intake & Output 02/26/23 02/27/23 02/28/23 03/01/23 23:59 23:59 23:59 23:
[2023-03-01 08:00] VITALS: O2SAT 97
--- NOTE | 2023-03-01 08:49 | HMH.PTEV ---
Physical Therapy Evaluation Rehab PT IP Evaluation Start: 02/28/23 15:08 Freq: ONCE Status: Active Protocol: Document 03/01/23 08:42 ALEX (Rec: 03/01/23 08:49 [email or web address] [id number]) Subjective/History History History 62 yowf adm to [facility] after suffering a traumatic dehisence of his prior surgical incision. He had R achilles tendon repair performed ~ 4 wks ago then tripped and fell with too much weight onto his R forefoot with new rupture of the tendon and his incision. He is now 1 day S/P repair. He reports no steps to enter the home, lives with his , he has a RW, crutches, and WKS already. Subjective Subjective Pt has no c/o this am, agrees to mobility assessment. Maintains NWB of R LE independently. Rehab PT IP Eval Objective Appearance Patient Behavior Appropriate Patient Orientation Person,Place,Time Difficulty following instructions none Speech Pattern Clear Ambulation Patient Able to Ambulate Yes Ambulation Observation Ambulation Distance (feet) 10 Ambulation Assistive Device None,Rolling Walker Ambulation Ability Independent Balance Ability to Arise Able, uses arms to help Sitting Balance Steady, safe Standing Balance Steady, wide stance Dynamic Sitting Balance Ability Good Dynamic Standing Balance Ability Good Transfers Bed Transfer Ability Independent Chair Transfer Ability Independent Sit to Stand Bed Transfer Ability Independent Sit to Stand Chair Transfer Ability Independent Rehab PT IP prob,goals,plan Problems Date of Evaluation: 03/01/23 Discharge Plan PT Discharge Plan Pt appears to be independent with all mobility at this time and is appropriate to return home once medically stable for d/c. G -code Required No Eval Complexity Eval Charge Codes 63388 - High Complexity PHYSICIAN CERTIFICATION: I certify the specified therapy services for Adam Whittington are required, authorized, and reviewed every 30 days.
[2023-03-01 10:14] LABS: POC Glucose,Bedside 137 (70-110)
--- NOTE | 2023-03-01 11:13 | PC.NURSE ---
SRNA NOTE: pt ambulated from bed to bathroom and from bathroom to bed. pt stated this was his first time up since his procedure. pt used the assist of h9is walker. pt had no complaints before,during, or after ambulation.
--- NOTE | 2023-03-01 14:59 | HMH.PHAINT1 ---
Pharmacy Intervention Comments: Discharge medications were discussed with patient. -Doxycycline (sun sensitivity) -Levofloxacin (N/V/D) -Hydrocodone (dizziness) Sean Landers, PharmD student
--- NOTE | 2023-03-01 16:55 | EXP.ANES.II ---
[facility] Anesthesia Record Part II Anesthesia Record Part II Discharge Time: 15:30 Destination: Medical Surgical Department PACU nurse assessment reviewed?: Yes Patient Condition:: Good Anesthesia Complications:: None Swallowing reflex intact?: Yes Cyanosis?: No Blood Pressure: 150/89 Pulse Rate: 90 Temperature: 98.8 F Mental Status: Alert & Oriented Pain level:: 0 Nausea and/or vomitting:: None Intake, IV Amount: 0
[2023-03-01 16:56] VITALS: BP 150/89; PULSE 90; TEMP 37.1
--- NOTE | 2023-03-04 14:23 | CARE MANAGER ---
Contacted patient related to hospital discharge. He states he is doing ok. He picked up his medication and has appointment with Dr. Vanessa tomorrow afternoon. Denies questions or concerns. OSVALDO Stone
== END 2023-03-01 15:06 | disposition home or self-care (01) ==
LOC: ER 19:21 → 2ND 20:54
PROVIDERS: Nurse Practitioner Critical Care Medicine; Podiatrist; Admitting Provider Internal Medicine Adolescent Medicine; Emergency Provider Emergency Medicine; PCP Nurse Practitioner Family; Visit Provider Internal Medicine Adolescent Medicine
PROC: (CPT 27654; principal; 2023-02-28 12:30)
DX: I10 Essential (primary) hypertension; E78.5 Hyperlipidemia, unspecified; E11.9 Type 2 diabetes mellitus without complications; T81.31XA Disruption of external operation (surgical) wound, not elsewhere classified, initial encounter; S86.011A Strain of right Achilles tendon, initial encounter; W01.198A Fall on same level from slipping, tripping and stumbling with subsequent striking against other object, initial encounter; Y92.019 Unspecified place in single-family (private) house as the place of occurrence of the external cause; Z79.84 Long term (current) use of oral hypoglycemic drugs
CPT/HCPCS: 27654; 15275; 36415; 73600; 73620; 76882; 80048; 80053; 82962; 83036; 83605; 85025; 85651; 86140; 87040; 97163; 99285; G0378; J0692; J2405; J3370; Q4211

== ENCOUNTER → 2023-05-21 07:58 | Outpatient (CLI) | payer BC, SELFPAY ==
--- NOTE | 2023-05-21 08:05 | XR_ITS ---
FINAL REPORT CLINICAL HISTORY: post-op COMPARISON: February 27, 2023 FINDINGS: RIGHT ANKLE: Three views of the right ankle were obtained. There is no acute fracture or dislocation. There are mild and moderate degenerative changes. There is calcification superior to the calcaneal tuberosity new from the prior exam. IMPRESSION: Calcification superior to the calcaneal tuberosity new from prior exam. Mild and moderate degenerative change. Reviewed, Interpreted and Dictated by Guero Saavedra III, MD Transcribed by Leighton Trujillo Authenticated and . [facility]
== END ==
PROVIDERS: PCP Internal Medicine Adolescent Medicine; Visit Provider Podiatrist
DX: Z98.890 Other specified postprocedural states (principal)
CPT/HCPCS: 73610

== ENCOUNTER 2023-05-21 09:07 | Outpatient (RCR) | payer BC, SELFPAY | END 2023-05-21 10:30 | disposition home or self-care (01) | LOC: PT 09:07 | PROVIDERS: Visit Provider Podiatrist | DX: S86.011S Strain of right Achilles tendon, sequela (principal); Z98.890 Other specified postprocedural states | CPT/HCPCS: 97760 ==